=== PATIENT | female | born 1940 | race Caucasian/White ===

== ENCOUNTER 2017-10-23 03:21 | Emergency (ER) | payer MEDICARE ==
[~2017-10-23] VITALS: Ht 149.8 cm; Wt 52.2 kg
[2017-10-23 03:58] LABS: BASO % 0.1 % (0.0-1.0); EOS # 0.1 10*3/uL (0.0-0.4); HEMATOCRIT 36.5 % (37.0-47.0); HEMOGLOBIN 12.4 g/dl (12.0-16.0); LYMPH # 1.9 10*3/uL (1.3-4.4); LYMPH % 16.9 % (27.0-41.0); MEAN CELL VOLUME 91.9 fl (81.0-99.0); MEAN CORPUSCULAR HGB 31.2 pg (27.0-31.0); MEAN PLATELET VOLUME 9.5 fl (9.6-12.3); MONO # 0.9 10*3/uL (0.1-1.0); MONO % 8.2 % (3.0-9.0); NEUT # 8.3 10*3/uL (2.3-7.9); NEUT % 73.2 % (47.0-73.0); PLATELET COUNT AUTOMATED 324 10*3/uL (130-400); RED BLOOD COUNT 3.97 10*6/uL (4.10-5.10); RED CELL DISTRI WIDTH 13.5 % (0-14.5); WHITE BLOOD COUNT 11.4 10*3/uL (4.8-10.8)
[2017-10-23 04:13] LABS: BILIRUBIN NEGATIVE (NEGATIVE); BLOOD TRACE-INTACT (NEGATIVE); CLARITY SL CLOUDY (CLEAR); COLOR YELLOW (YELLOW); GLUCOSE NEGATIVE (NEGATIVE); KETONE NEGATIVE (NEGATIVE); LEUKO ESTERASE 3+ (NEGATIVE); NITRITE NEGATIVE (NEGATIVE); PH 6.5 (5.0-9.0); SPECIFIC GRAVITY <= 1.005 (1.005-1.030); UROBILINOGEN 0.2 E.U./dl (0.2-1.0)
[2017-10-23 04:18] LABS: ALBUMIN 3.3 gm/dl (3.1-4.5); ALKALINE PHOSPHATASE 74 U/L (45-117); BUN 9 mg/dl (7-24); CHLORIDE 99 mmol/L (98-107); CREATININE 0.72 mg/dL (0.55-1.02); LIPASE 86 U/L (73-393); POTASSIUM 3.9 mmol/L (3.5-5.1); SGOT/AST 19 IU/L (3-35); SGPT/ALT 20 U/L (12-78); SODIUM 135 mmol/L (136-145); TOTAL PROTEIN 7.9 gm/dL (6.4-8.2)
[2017-10-23 04:20] LABS: TROPONIN I < 0.015 ng/ml (<0.045)
[2017-10-23 04:23] LABS: BACTERIA 3+; EPITHELIAL CELLS 35-40; WBC 31-40 wbc/hpf (0-5)
[2017-10-23] MEDS ORDERED: SEPTDS PO (04:32)
== END 2017-10-23 04:48 | disposition home or self-care (01) ==
LOC: ED 03:21
PROVIDERS: Student in an Organized Health Care Education/Training Program
DX: N39.0 Urinary tract infection, site not specified (principal)

== ENCOUNTER 2019-02-23 05:53 | Inpatient (IN) | payer MEDICARE, OTHER ==
[~2019-02-23] VITALS: Ht 157.5 cm; Wt 50.3 kg
[2019-02-23] VITALS (13 sets, daily range): BP systolic 118–146; BP diastolic 58–89
--- NOTE | ~2019-02-23 | PR ---
[place], [place] PROGRESS NOTE NAME: KIARA GARCIA UNIT #: [id number] ROOM: 407 DOCTOR: BHAVIN ROLAND MD BIRTHDATE: [birth year] DOS: 02/25/2019 REASON FOR VISIT: Supraventricular tachycardia and cardiomyopathy. SUBJECTIVE: The patient denies any chest pain, shortness breath. No PND, no palpitation, no dizziness, no syncope. No nausea, vomiting. No bladder or bowel symptoms, no neurologic symptoms. REVIEW OF SYSTEMS: Review of the 8 systems negative except as mentioned above. PHYSICAL EXAMINATION: VITAL SIGNS: Blood pressure 140/84, pulse 70, respiratory rate 16. Rhythm strips, the patient in sinus rhythm. GENERAL: Alert, comfortable, in no acute distress. Head and NECK: Supple, no distended neck veins, no carotid bruit. CHEST: Symmetrical, nontender. LUNGS: Clear to auscultation bilaterally. HEART: Regular rhythm, no S3, no palpable thrills. ABDOMEN: Benign, nontender. Bowel sounds normal. EXTREMITIES: Showed no edema. Distal pulses palpable. SKIN: Warm and dry. No cyanosis, no clubbing. RECTAL: Deferred. GENITOURINARY: Deferred. labs and MEDICATIONS: Reviewed as available. IMPRESSION: 1. Paroxysmal supraventricular tachycardia, possible atrial tachycardia, no recurrence, the patient has no atrial fibrillation. 2. Acute systolic heart failure, ejection fraction is 25-30% by echo. The patient on beta marge as well as GENTRY inhibitors. The patient was scheduled for stress test today. 3. Hypertension. RECOMMENDATIONS: 1. Continue current medications. 2. Lexiscan stress test today. 3. If the stress test is unremarkable and based on the stress test findings, we will adjust medications. 4. Continue her beta blockers, GENTRY inhibitors and diuretics. 5. If her blood pressure is stable, we will add spironolactone. 6. No family at bedside at the time of my examination. [place], [place] PROGRESS NOTE NAME: KIARA GARCIA UNIT #: [id number] ROOM: 407 DOCTOR: BHAVIN ROLAND MD BIRTHDATE: [birth year] BHAVIN ROLAND MD CM:PNTRANS [phone] BHAVIN ROLAND MD 03/20/19 0745 interface
--- NOTE | ~2019-02-23 | EKG ---
[place], [place] ELECTROCARDIOGRAM REPORT NAME: KIARA GARCIA UNIT #: [id number] ROOM: 407 DOCTOR: MAHESH DRAFT REPORT BIRTHDATE: [birth year] [facility] Test Date: 2019-02-23 Test Time: 06:13:14 Pat Name: KIARA GARCIA Department: Room: 407 Gender: F Healthcare Economics Consultant: : 1940 Requested By: SHADE BOWENS Order Number: [id number] Reading MD: Rios Ramirez Measurements Intervals [place] Rate: 153 P: 41 DE: 115 QRS: 21 QRSD: 86 T: 196 QT: 315 QTc: 503 Interpretive Statements Supraventricular tachycardia Anteroseptal infarct, old Repolarization abnormality, prob rate related Baseline wander in lead(s) V1,V2 Electronically Signed On 02-26-2019 4:19:27 PDT by Rios Ramirez CM:EKGRPT:ELECTROCARDIOGRAM REPORT [id number] SHADE ARAGON DRAFT REPORT SHAED BOWENS MD
--- NOTE | ~2019-02-23 | ST ---
[place], [place] EXERCISE STRESS TEST REPORT NAME: KIARA GARCIA [facility] #: [id number] UNIT #: [id number] ROOM: 407 DOCTOR: ASUNCION BURNHAM,BHAVIN BIRTHDATE: [birth year] DOS: 02/24/2019 LEXISCAN STRESS TEST REASON FOR TEST: The patient with cardiomyopathy and tachycardia. PHYSICAL EXAMINATION NECK: Supple. LUNGS: Clear anteriorly. HEART: Regular rhythm. PROTOCOL: Lexiscan protocol. Maximum heart rate of 113, peak blood pressure 125/62. SYMPTOMS: The patient is chest pain free. The patient had some "gas bubble" feeling in the chest. EKG: Resting EKG showed sinus rhythm. Stress EKG showed no ischemia. CONCLUSION: Clinically, the patient is chest pain free, developed some gas bubble sensation in the epigastric area. EKG nonischemic. POST-STRESS COMPLICATIONS: None. The patient received a total of 0.4 mg Lexiscan. BHAVIN ROLAND MD CM:STRESS:EXERCISE STRESS TEST REPORT [id number] BHAVIN ROLAND MD
--- NOTE | ~2019-02-23 | EKG ---
[place], [place] ELECTROCARDIOGRAM REPORT NAME: KIARA GARCIA UNIT #: [id number] ROOM: 407 DOCTOR: MAHESH DRAFT REPORT BIRTHDATE: [birth year] [facility] Test Date: 2019-02-23 Test Time: 07:21:03 Pat Name: KIRAA GARCIA Department: Room: 407 Gender: F Mail Room: : 1940 Requested By: SHADE BOWENS Order Number: [id number] Reading MD: Rios Ramirez Measurements Intervals [place] Rate: 150 P: 72 [place]: 160 QRS: 34 QRSD: 87 T: 86 QT: 361 QTc: 571 Interpretive Statements Supraventricular tachycardia Anteroseptal infarct, old ST depression, probably rate related Electronically Signed On 02-26-2019 4:19:37 PDT by Rios Ramirez CM:EKGRPT:ELECTROCARDIOGRAM REPORT [id number] SHADE BOWENS MD EPIPHANY DRAFT REPORT SHADE BOWENS MD
--- NOTE | ~2019-02-23 | PR ---
[place], [place] PROGRESS NOTE NAME: KIARA GARCIA UNIT #: [id number] ROOM: 407 DOCTOR: BHAVIN ROLAND MD BIRTHDATE: [birth year] DOS: 02/24/2019 CARDIOLOGY FOLLOWUP VISIT NOTE REASON FOR VISIT: Supraventricular tachycardia and cardiomyopathy. HISTORY OF PRESENT ILLNESS: The patient denies any chest pain or shortness of breath. No palpitation, dizziness. She would like to go home as soon as possible. No PND, no orthopnea. No nausea, vomiting, diarrhea. REVIEW OF SYSTEMS: Review of 10 systems negative except as mentioned above. RHYTHM STRIPS: The patient is in sinus rhythm. PHYSICAL EXAMINATION: VITAL SIGNS: Blood pressure 130/72, pulse 86, respiration rate was 18. GENERAL: Alert, comfortable, in no acute distress. HEAD AND NECK: Pupils are round and equal, no jaundice. Neck supple, no distended neck veins, no carotid bruit. Tongue was moist and pharynx clear. LUNGS: Clear to auscultation bilaterally. HEART: Regular rhythm, no S3. Grade 1/6 systolic murmur. ABDOMEN: Benign, nontender. Bowel sounds normal. EXTREMITIES: Showed no edema. Distal pulses palpable. SKIN: Warm and dry. No cyanosis, no clubbing. RECTAL: Deferred. GENITOURINARY: Deferred. NEUROLOGIC: The patient is alert with no focal neurologic deficit. PSYCHIATRIC: The patient is alert with good mood and affect. DIAGNOSTIC TEST: A 2D echo showed EF of 25-30% and mild valvular heart disease. RECOMMENDATIONS: 1. Continue her beta blockers. 2. Lexiscan stress test today. 3. Based on Lexiscan stress test and LV function, add a low dose GENTRY inhibitors and also Aldactone as her blood pressure tolerates. 4. If the stress test is nonischemic, possibly discharge in the next 24 hours. 5. No family at bedside at the time of my examination. 6. A 2D echo findings are discussed with the patient. [place], [place] PROGRESS NOTE NAME: KIARA GARCIA UNIT #: [id number] ROOM: 407 DOCTOR: BHAVIN ROLAND MD BIRTHDATE: [birth year] BHAVIN ROLAND MD CM:PNKEISHA [id number] BHAVIN ROLAND MD 02/25/19 0527 interface
--- NOTE | ~2019-02-23 | CON ---
[place], [place] REPORT OF CONSULTATION NAME: KIARA GARCIA UNIT #: [id number] ROOM: 407 DOCTOR: BHAVIN ROLAND MD BIRTHDATE: [birth year] DOS: 02/23/2019 CARDIOLOGY CONSULT REASON FOR CONSULTATION: Tachycardia. HISTORY OF PRESENT ILLNESS: The patient is a 79-year-old patient with no prior cardiovascular history except questionable hypertension, was presented to the Emergency Room for shortness of breath for the past 2 days, has had some rapid heart rate with a cough. Apparently, she did not see any physician in the past 5 years. She is taking blood pressure medication, but currently not taking any medications, so her main complaint is shortness of breath, which she woke up from sleep a couple of days ago, also having some heart racing as well as a cough with nonproductive sputum. She denies exertional chest pains or syncope. She was in significant distress due to of her brother and also divorce of her son. No PND, no orthopnea. No nausea, vomiting, diarrhea. No fever and chills, no hemoptysis. No bladder or bowel symptoms. No musculoskeletal symptoms, no neurologic symptoms. REVIEW OF SYSTEMS: Review of 10 systems negative except as mentioned above. PAST MEDICAL HISTORY: 1. Possible hypertension, but the patient is off the medications. 2. History of breast cancer with mastectomy. PAST SURGICAL HISTORY: History of mastectomy. SOCIAL HISTORY: The patient does not use illicit drugs: Nonsmoker, social alcohol. FAMILY HISTORY: Nil contributory due to her age. Father in his 60s from cancer. Mother in her 60s from old age. ALLERGIES: No known drug allergies. HOME MEDICATIONS: Reviewed. PHYSICAL EXAMINATION: VITAL SIGNS: Blood pressure 127/80, pulse 70, respiration is 20, weight 50.3 kilos. GENERAL: Alert, comfortable, in no acute distress. HEENT: Pupils are round and equal, no jaundice. NECK: Supple, no distended neck veins, no carotid bruit. CHEST: Symmetrical, nontender. LUNGS: Few scattered rhonchi. Good air entry bilaterally. HEART: Regular rhythm, no S3, no palpable thrills. Grade 1/6 systolic murmur. ABDOMEN: Benign, nontender. Bowel sounds normal. EXTREMITIES: Showed no edema. Distal pulses palpable. SKIN: Warm and dry. No cyanosis, no clubbing. RECTAL: Deferred. [place], [place] REPORT OF CONSULTATION NAME: KIARA GARCIA UNIT #: [id number] ROOM: 407 DOCTOR: ASUNCION BURNHAM,BHAVIN BIRTHDATE: [birth year] GENITOURINARY: Deferred. NEUROLOGIC: The patient is alert with no focal neurologic deficit. MUSCULOSKELETAL: No joint tenderness or swelling. REVIEW OF THE DIAGNOSTIC TESTS: EKG, labs, and imaging studies reviewed. EKG showed supraventricular tachycardia, possible atrial tachycardia versus AV node reentry tachycardia, but no atrial fibrillation. CBC, chemistry reviewed. Cardiac troponins are 0.05, 0.094, 0.11. Potassium 3, magnesium 2.7. TSH is normal. IMPRESSION: 1. Paroxysmal supraventricular tachycardia, the patient currently sinus rhythm after intravenous Cardizem. 2. Acute heart failure, possibly systolic. 3. Questionable history of hypertension. 4. Mild hypokalemia. 5. Mild anemia. RECOMMENDATIONS: 1. I will start low-dose beta marge for tachycardia and monitor the heart rate, blood pressure. 2. A 2D echo was done, pending. 3. Lexiscan stress test tomorrow to rule out ischemia. 4. The patient advised to avoid excesses of caffeine. 5. Continue her diuretics for now. 6. Based on her echo and stress test, further medication changes will be done. 7. The preliminary echo findings showed her EF is about 30%. 8. There is no family at bedside. 9. No need for any oral anticoagulation since there is no evidence of atrial fibrillation at this time. BHAVIN ROLAND MD CM:CONSTR:REPORT OF CONSULTATION 1925 02/24/19 0327 interface
[~2019-02-23 05:53] MED LIST: SEPTDS PO
[2019-02-23] MEDS ORDERED: MULTIVITAMINS1 EAC5 PO (05:58)
[2019-02-23 07:10] LABS: BASO % 0.2 % (0.0-1.0); EOS # 0.1 10*3/uL (0.0-0.4); EOS % 1.1 % (1.0-4.0); HEMATOCRIT 36.6 % (37.0-47.0); HEMOGLOBIN 11.9 g/dl (12.0-16.0); LYMPH # 1.1 10*3/uL (1.3-4.4); LYMPH % 13.1 % (27.0-41.0); MEAN CELL VOLUME 98.4 fl (81.0-99.0); MEAN CORPUSCULAR HGB CONC 32.5 g/dl (33.0-37.0); MEAN PLATELET VOLUME 9.8 fl (9.6-12.3); MONO # 0.5 10*3/uL (0.1-1.0); MONO % 6.7 % (3.0-9.0); NEUT # 6.3 10*3/uL (2.3-7.9); NEUT % 78.5 % (47.0-73.0); PLATELET COUNT AUTOMATED 272 10*3/uL (130-400); RED BLOOD COUNT 3.72 10*6/uL (4.10-5.10); RED CELL DISTRI WIDTH 13.8 % (0-14.5)
[2019-02-23 07:22] LABS: ALBUMIN 3.5 gm/dl (3.1-4.5); ALKALINE PHOSPHATASE 73 U/L (45-117); BUN 17 mg/dl (7-24); CHLORIDE 108 mmol/L (98-107); CREATININE 0.85 mg/dL (0.55-1.02); POTASSIUM 3.4 mmol/L (3.5-5.1); SGOT/AST 51 IU/L (3-35); SGPT/ALT 41 U/L (12-78); SODIUM 141 mmol/L (136-145); TOTAL PROTEIN 6.8 gm/dL (6.4-8.2)
[2019-02-23 07:26] LABS: TROPONIN I 0.051 ng/ml (<0.045)
--- NOTE | 2019-02-23 07:26 | NUR ---
Dr. Alva notified of critical troponin 0.051
--- NOTE | 2019-02-23 08:00 | NUR ---
Cardizem gtt increased to 15ml/hr per Dr. Alva's order. Will continue to monitor.
--- NOTE | 2019-02-23 08:35 | NUR ---
A 79, admitted to , under the services of LUCY Grullon DO with a diagnosis of AFIB RVR. Chief complaint is RAPID HEART RATE AND SHORTNESS OF BREATH/WHEEZING AT HOME. Patient arrived via stretcher from ER. Monitor applied. Initial assessment completed. Vital signs taken and recorded. LUCY GRULLON DO notified of admission to the unit. Orders received. See assessment for past medical history, medications and allergies. Patient and/or family oriented to unit. [facility] visitation policy reviewed. Clothing/patient valuable form completed. PRASAD DELGADO
--- NOTE | 2019-02-23 08:56 | NUR ---
[facility] CARDIOLOGY OFFICE STAFF NOTIFIED OF CONSULT.
[2019-02-23 09:19] LABS: FREE T4 1.42 ng/dl (0.76-1.46)
[2019-02-23 09:24] LABS: THYROID STIM HORMONE (HS) 1.38 uIU/ml (0.358-4.75)
--- NOTE | 2019-02-23 11:05 | NUR ---
HR DOWN TO 90'S/AFLUTTER/IRREGULAR ON CARDIZEM DRIP AT 15ML/HR.
--- NOTE | 2019-02-23 11:18 | NUR ---
DR. HUSSEIN'S OFFICE STAFF NOTIFIED OF MOST RECENT TROPONIN I AND THAT IT HAS INCREASED FROM THE LAST RESULT. MESSAGE SENT TO DR. HUSSEIN, PER STAFF.
--- NOTE | 2019-02-23 11:34 | NUR ---
HR CONVERTED TO NSR RATE 80'S AND REGULAR ON MONITOR ON CARDIZEM DRIP AT 15ML/HR.
--- NOTE | 2019-02-23 12:09 | NUR ---
DR. ROLAND IS AWARE OF LAST TROPONIN RESULT. OBTAINED ORDER TO TITRATE CARDIZEM DRIP DOWN TO 5ML/HR, THEN STOP AFTER HALF AN HOUR.
--- NOTE | 2019-02-23 13:51 | NUR ---
DR. ROLAND'S OFFICE STAFF NOTIFIED OF MOST RECENT TROPONIN I RESULT.
--- NOTE | 2019-02-23 20:04 | NUR ---
NOTIFIED DR. HAIDER THAT PATIENT IS COMPLAIING OF INDIGESTION AND THAT SHE HAS NOT TAKEN HER NEXIUM IN A COUPLE DAYS DUE TO NOT FEELING WELL. DR. HAIDER STATED THAT SHE WOULD PUT IN FOR SOME TUMS
[2019-02-24] VITALS: BP 138/91
--- NOTE | 2019-02-24 00:15 | NUR ---
NOTIFIED DR. HAIDER AT THIS TIME THAT PATIENT HAS DEVELOPED WHEEZING WHEN SHE WAS DIMINSIHED EARLIER, WHEEZING IS AUDIBLE WITHOUT STETHSCOPE. NOTIFIED HER THE PATIENT IS NOT ON FLUIDS AND HER CHEST XRAY SHOULD VASCULAR CONGESTION WHICH SHE IS ON 20MG OF IV LASIX DAILY FOR. DR. HAIDER ORDERED THE PATIENT TO HAVE 125MG IV SOLUMEDROL NOW AND THEN 40MG BID
--- NOTE | 2019-02-24 02:00 | NUR ---
PATIENT SLEEPING. OXYGEN IN USE FOR COMFORT. NO DISTRESS NOTED. BREATHING IS EASY AND REGULAR. CALL LIGHT WITHIN REACH, WILL MONITOR
--- NOTE | 2019-02-24 03:04 | NUR ---
24 HR chart check completed.
[2019-02-24 07:04] LABS: HEMATOCRIT 40.3 % (37.0-47.0); HEMOGLOBIN 12.9 g/dl (12.0-16.0); MEAN CELL VOLUME 98.3 fl (81.0-99.0); MEAN CORPUSCULAR HGB 31.5 pg (27.0-31.0); PLATELET COUNT AUTOMATED 294 10*3/uL (130-400); WHITE BLOOD COUNT 7.3 10*3/uL (4.8-10.8)
[2019-02-24 07:39] LABS: ALBUMIN 3.7 gm/dl (3.1-4.5); BUN 18 mg/dl (7-24); CHLORIDE 105 mmol/L (98-107); CHOLESTEROL 161 mg/dL (<200); CREATININE 0.89 mg/dL (0.55-1.02); PHOSPHOROUS 2.4 mg/dL (2.5-4.9); POTASSIUM 4.1 mmol/L (3.5-5.1); SGOT/AST 29 IU/L (3-35); SGPT/ALT 34 U/L (12-78); SODIUM 139 mmol/L (136-145); TOTAL PROTEIN 7.7 gm/dL (6.4-8.2)
[2019-02-24 07:41] LABS: PLATELET SUFFICIENCY NORMAL (NORMAL); TOTAL CELLS COUNTED 100 #CELLS
[2019-02-24 07:47] LABS: ALKALINE PHOSPHATASE 76 U/L (45-117); HDL CHOLESTEROL 47 mg/dl (40-60); LDL CHOLESTEROL 100 mg/dL (9-159); TRIGLYCERIDES 71 mg/dl (<150); VLDL CHOLESTEROL 14 mg/dL (6-40)
[2019-02-24 08:00] VITALS: BP 102/84
[2019-02-24 08:18] LABS: VITAMIN D, 25-HYDROXY 55.3 ng/mL (30-100)
[2019-02-24 08:20] VITALS: BP 140/82
--- NOTE | 2019-02-24 11:19 | NUR ---
PATIENT TO CARDIAC REHAB FOR STRESS TEST BY WHEELCHAIR AT THIS TIME.
--- NOTE | 2019-02-24 13:11 | NUR ---
Wealth Management Consultant in to talk to patient. Patient states lives at HOME with ALONE. There are BASEMENT steps in the home. Physician: NONE AT THIS TIME [facility]acy: [facility] Home health services: NONE Patient's level of ADLs: INDEPENDENT Patient has working utilities: YES DME: NONE Follow-up physician's appointment after d/c: STATES HER INSURANCE CHANGED RECENTLY AND SHE HAS NOT FOUND ONE YET Does patient want to access PORTAL?: NO Discharge plan PT LIVES AT HOME ALONE AND IT IS INDEPENDENT IN HER CARE. TALKED WITH HER ABOUT HOME HEALTH BUT PT STATES SHE DOES NOT WANT THEM. STATES HER SON LIVES NEAR HER AND HE HELPS HER IF SHE NEEDS IT. WILL CONTINUE TO FOLLOW.. STATES SHE WILL HAVE A RIDE HOME. JOSE ELIAS DOTSON
--- NOTE | 2019-02-24 13:15 | NUR ---
INFORMED CONSENT SIGNED FOR LEXISCAN STRESS TEST WITH DR. ROLAND. RESTING EKG NSR, HR 91,BP 130/72. LUNGS CLEAR AND PULSE OX 95%. COMPLETED ONE MINUTE OF LEXISCAN PROTOCOL RECEIVING LEXISCAN 0.4MG OVER 10 SECONDS. NO ARRHYTHMIAS OR ST CHANGES NOTED. PT C/O ODD FEELING AND CHEST DISCOMFORT. LAST RECOVERY HR 10, BP 118/70. WAITING NUCLEAR SCANNING IN STABLE CONDITION.
--- NOTE | 2019-02-24 14:45 | NUR ---
PATIENT RETURNED FROM STRESS TEST, SEE SHIFT ASSESSMENTS FOR DETAILS.
[2019-02-24 16:00] VITALS: BP 152/83
--- NOTE | 2019-02-24 16:50 | NUR ---
PT AMBULATORY IN ROOM. NO C/O AT THIS TIME. CALL LIGHT IN REACH.
--- NOTE | 2019-02-24 19:58 | NUR ---
24 HR chart check completed.
[2019-02-24 20:00] VITALS: BP 148/76
--- NOTE | 2019-02-24 20:00 | NUR ---
AMBULATING WITHIN ROOM. NO DISTRESS NOTED. RESPIRATIONS EASY. LUNGS DIMINISHED, CLEAR. PULSE OX 97% RA, O2 PRESENT AT BEDSIDE FOR PRN USE. ABD SOFT WITH NORMO BS, UNSURE OF LAST BM BUT DECLINES LAXATIVE. TRACE BLE EDEMA, DECLINES TEDS. CALL LIGHT WITHIN REACH. NO VOICED COMPLAINTS
[2019-02-25] VITALS: BP 142/84
--- NOTE | 2019-02-25 | NUR ---
SLEEPING WITH NO DISTRESS NOTED. RESPIRATIONS EASY. VSS. CALL LIGHT WITHIN REACH.
--- NOTE | 2019-02-25 02:00 | NUR ---
CONTINUES TO SLEEP WITH NO DISTRESS NOTED. CALL LIGHT WITHIN REACH
--- NOTE | 2019-02-25 05:20 | NUR ---
SLEPT THROUGHOUT NIGHT WITH NO DISTRESS NOTED. RESPIRATIONS EASY. CALL LIGHT WITHIN REACH. NO VOICED COMPLAINTS THIS SHIFT
--- NOTE | 2019-02-25 07:40 | NUR ---
PT RESTING IN BED. NO C/O AT THIS TIME. PT ANXIOUS TO GO HOME TODAY. CALL LIGHT IN REACH. SEE SHIFT ASSESSMENT.
[2019-02-25 08:00] VITALS: BP 130/74
--- NOTE | 2019-02-25 10:00 | NUR ---
TOLERATED ROUTINE MED WITH NO PROBLEM. NO C/O AT THIS TIME. CALL LIGHT IN REACH.
--- NOTE | 2019-02-25 11:07 | NUR ---
PT CONTINUES TO DENY NEEDS ON DISCAHRGE. WILL CONTINUE TO FOLLOW.
[2019-02-25] MEDS ORDERED: PREDNISONE10 MG PO (12:54)
[2019-02-25] MEDS ORDERED: METOPROLOL SUCC25 M2 PO (12:54)
[2019-02-25] MEDS ORDERED: LISINOPRIL2.5 MG PO (12:54)
[2019-02-25] MEDS ORDERED: LASIX20 MG PO (13:05)
--- NOTE | 2019-02-25 14:30 | NUR ---
Discharge instructions reviewed with patient/family. Patient receptive and verbalizes understanding. Follow-up care arranged. Written instructions given to patient/family. HEPLOCK REMOVED 2X2 APPLIED. MONITOR REMOVED. TRISTON PETTY
--- NOTE | 2019-02-25 14:30 | NUR ---
ESCORTED VIA WHEELCHAIR FOR DISCHARGE.
== END 2019-02-25 14:30 | disposition home or self-care (01) | DRG 308 ==
LOC: ED 05:53 → EDHOLD 08:05 → 4E 08:05
PROVIDERS: Emergency Medicine Emergency Medical Services; Internal Medicine; ADMIT Internal Medicine
PROC: 3E073KZ Introduction of Other Diagnostic Substance into Coronary Artery, Percutaneous Approach (ICD-10-PCS; principal; 2019-02-24)
PROC: 4A02XM4 Measurement of Cardiac Total Activity, External Approach (ICD-10-PCS; principal; 2019-02-24)
DX: I47.1 Supraventricular tachycardia (principal); I50.21 Acute systolic (congestive) heart failure; R74.8 Abnormal levels of other serum enzymes; E86.0 Dehydration; E87.6 Hypokalemia; I11.0 Hypertensive heart disease with heart failure; I34.0 Nonrheumatic mitral (valve) insufficiency; I27.20 Pulmonary hypertension, unspecified; R09.89 Other specified symptoms and signs involving the circulatory and respiratory systems; D64.9 Anemia, unspecified; E83.41 Hypermagnesemia; R73.9 Hyperglycemia, unspecified; F41.9 Anxiety disorder, unspecified; K21.9 Gastro-esophageal reflux disease without esophagitis; Z85.3 Personal history of malignant neoplasm of breast; Z87.440 Personal history of urinary (tract) infections; Z90.10 Acquired absence of unspecified breast and nipple; Z80.8 Family history of malignant neoplasm of other organs or systems; Z79.899 Other long term (current) drug therapy; Z71.89 Other specified counseling

== ENCOUNTER → 2019-03-13 | Outpatient (CLI) | payer MEDICARE, OTHER ==
[~2019-03-13] MED LIST changes: +LASIX20 MG PO; +LISINOPRIL2.5 MG PO; +METOPROLOL SUCC25 M2 PO; +MULTIVITAMINS1 EAC5 PO; +PREDNISONE10 MG PO
== END | disposition home or self-care (01) ==
LOC: RESCLI 00:21
DX: Z09 Encounter for follow-up examination after completed treatment for conditions other than malignant neoplasm (principal); I11.0 Hypertensive heart disease with heart failure; I50.22 Chronic systolic (congestive) heart failure; D25.9 Leiomyoma of uterus, unspecified; Z79.899 Other long term (current) drug therapy; Z88.8 Allergy status to other drugs, medicaments and biological substances

== ENCOUNTER → 2019-04-14 | Outpatient (CLI) | payer MEDICARE, OTHER | END | disposition home or self-care (01) | LOC: RESCLI 02:15 | DX: I47.1 Supraventricular tachycardia (principal); I11.0 Hypertensive heart disease with heart failure; I50.22 Chronic systolic (congestive) heart failure; D25.9 Leiomyoma of uterus, unspecified; Z85.3 Personal history of malignant neoplasm of breast; Z79.899 Other long term (current) drug therapy; Z88.8 Allergy status to other drugs, medicaments and biological substances ==

== ENCOUNTER → 2019-04-23 | Outpatient (CLI) | payer MEDICARE, OTHER | END | disposition home or self-care (01) | LOC: MAMMO 10:32 | DX: R92.8 Other abnormal and inconclusive findings on diagnostic imaging of breast (principal); Z85.3 Personal history of malignant neoplasm of breast ==

== ENCOUNTER → 2019-07-24 | Outpatient (CLI) | payer MEDICARE, OTHER ==
--- NOTE | ~2019-07-24 | EKG ---
[place], [place] ELECTROCARDIOGRAM REPORT NAME: KIARA GARCIA UNIT #: [id number] ROOM: DOCTOR: EPIPHANY DRAFT REPORT BIRTHDATE: [birth year] [facility] Test Date: 2019-07-24 Test Time: 10:17:38 Pat Name: KIARA GARCIA Department: Room: Gender: F Data Analytics Analyst: : 1940 Requested By: JERMEIAH SORENSEN Order Number: [id number] Reading MD: Luiz White MD Measurements Intervals [place] Rate: 91 P: 72 MS: 165 QRS: -9 QRSD: 89 T: -89 QT: 405 QTc: 499 Interpretive Statements Sinus rhythm Probable left atrial enlargement Probable LVH with secondary repol abnrm Anterior Q waves, possibly due to LVH Baseline wander in lead(s) V2 Compared to ECG 02/23/2019 07:21:03 Left ventricular hypertrophy now present Q waves now present Supraventricular tachycardia no longer present Myocardial infarct finding no longer present ST (T wave) deviation no longer present Electronically Signed On 07-28-2019 9:08:50 PST by Luiz White MD CM:EKGRPT:ELECTROCARDIOGRAM REPORT [id number] JEREMIAH ARAGON DRAFT REPORT JEREMIAH SORENSEN MD
== END | disposition home or self-care (01) ==
LOC: RESCLI 00:44
DX: I11.0 Hypertensive heart disease with heart failure (principal); I50.22 Chronic systolic (congestive) heart failure; R00.0 Tachycardia, unspecified; K46.9 Unspecified abdominal hernia without obstruction or gangrene; Z79.899 Other long term (current) drug therapy

== ENCOUNTER 2024-05-09 15:14 | Emergency (ER) | payer MEDICARE, OTHER ==
[~2024-05-09] VITALS: Ht 152.4 cm; Wt 38.6 kg
[~2024-05-09 15:14] MED LIST changes: +CARVEDILOL6.25 MG PO; +DOCUSATE SOD100 MG PO; +RISPERIDONE0.5 MG PO; +RIVASTIGMINE1 EACH T
[2024-05-09] MEDS ORDERED: methylPREDNISolone sod succ 125 MG VIAL IM ONE (15:45)
[2024-05-09] MEDS ORDERED: diphenhydrAMINE hydrochloride 50 MG/ML VIAL IM ONE (15:50)
[2024-05-09] MEDS ORDERED: PREDNISONE20 M1 PO (16:41)
[2024-05-09] MEDS ORDERED: BENADRYL ITCH28.3 GM T (16:41)
== END 2024-05-09 16:47 | disposition home or self-care (01) ==
LOC: ED 15:14
DX: T63.441A Toxic effect of venom of bees, accidental (unintentional), initial encounter (principal); I10 Essential (primary) hypertension; I48.91 Unspecified atrial fibrillation; Z98.890 Other specified postprocedural states; Z90.11 Acquired absence of right breast and nipple; Y92.89 Other specified places as the place of occurrence of the external cause